=== PATIENT | male | born 1995 | race Caucasian/White ===

== ENCOUNTER 2017-02-16 19:14 | Emergency (ER) | payer OTHER ==
[~2017-02-16] VITALS: Ht 193 cm; Wt 96.4 kg
[2017-02-16 19:15] VITALS: BP 132/63
[2017-02-16] MEDS ORDERED: HUMALOG INSULIN PUMP INJ (19:22)
== END 2017-02-16 22:05 | disposition home or self-care (01) ==
LOC: M ED 19:14
DX: S09.90XA Unspecified injury of head, initial encounter (principal); W50.0XXA Accidental hit or strike by another person, initial encounter; Y92.310 Basketball court as the place of occurrence of the external cause; Y93.67 Activity, basketball; Y99.8 Other external cause status; E10.9 Type 1 diabetes mellitus without complications; Z79.4 Long term (current) use of insulin; Z88.2 Allergy status to sulfonamides

== ENCOUNTER 2017-04-22 20:58 | Emergency (ER) | payer OTHER ==
[~2017-04-22] VITALS: Ht 193 cm; Wt 100.0 kg
[~2017-04-22 20:58] MED LIST: HUMALOG INSULIN PUMP INJ
[2017-04-22] MEDS ORDERED: D5W/0.45% SODIUM CHLORIDE 1,000 ML IV SCH (21:21)
[2017-04-22 21:50] LABS: VENOUS BASE EXCESS -0.6 (-2.0-2.0); VENOUS O2 SATURATION 76.9 % (60.0-80.0); VENOUS PARTIAL PRESSURE CO2 49.6 mmHg (38.0-50.0); VENOUS PARTIAL PRESSURE O2 43.3 mmHg (30.0-50.0); VENOUS STANDARD HCO3 23.4 MEQ/L; VENOUS TOTAL CO2 27.4 MEQ/L (24.0-28.0)
[2017-04-22 21:59] LABS: BASO % 0.3 % (0.0-1.0); EOS # 0.1 10^3/uL (0.0-0.50); EOS % 1.2 % (0.0-3.0); IMMATURE GRANULOCYTE % 0.3 % (0-0); LYMPH # 1.2 10^3/uL (1.5-6.5); LYMPH % 13.6 % (24.0-44.0); MEAN CORPUSCULAR HEMOGLOBIN 32.3 pg (27.0-33.0); MEAN CORPUSCULAR HGB CONC 34.7 g/dl (32.0-36.5); MEAN CORPUSCULAR VOLUME 93.1 fl (80.0-96.0); MONO # 0.8 10^3/uL (0.0-0.8); MONO % 8.9 % (0.0-5.0); NEUTROPHILS # 6.5 10^3/uL (1.8-7.7); NEUTROPHILS % 75.7 % (36.0-66.0); PLATELET COUNT, AUTOMATED 248 10^3/uL (150-450); RED CELL DISTRIBUTION WIDTH 12.3 % (11.5-14.5); WHITE BLOOD COUNT 8.6 10^3/uL (4.0-10.0)
[2017-04-22 22:19] LABS: ALBUMIN 3.6 GM/DL (3.2-5.2); ALBUMIN/GLOBULIN RATIO 1.06 (1.00-1.93); ALKALINE PHOSPHATASE 136 U/L (45-117); ALT/SGPT 36 U/L (12-78); ANION GAP 6 MEQ/L (8-16); AST/SGOT 33 U/L (7-37); BILIRUBIN,DIRECT 0.1 MG/DL (0.0-0.2); BILIRUBIN,TOTAL 0.7 MG/DL (0.2-1.0); BLOOD UREA NITROGEN 21 MG/DL (7-18); CARBON DIOXIDE LEVEL 30 MEQ/L (21-32); CHLORIDE LEVEL 104 MEQ/L (98-107); CREATININE FOR GFR 1.29 MG/DL (0.70-1.30); GLUCOSE, FASTING 90 MG/DL (70-105); POTASSIUM SERUM 3.6 MEQ/L (3.5-5.1); SODIUM LEVEL 140 MEQ/L (136-145)
[2017-04-22 23:14] VITALS: BP 154/78
== END 2017-04-22 23:18 | disposition home or self-care (01) ==
LOC: EDBD 20:58 → M ED 20:58
DX: E10.649 Type 1 diabetes mellitus with hypoglycemia without coma (principal)

== ENCOUNTER 2018-03-26 04:54 | Emergency (ER) | payer OTHER ==
[2018-03-26] MEDS: NS 1,000 ML IV ×2 (06:15)
[2018-03-26 06:31] LABS: VENOUS BASE EXCESS -0.1 (-2.0-2.0); VENOUS O2 SATURATION 75.7 % (60.0-80.0); VENOUS PARTIAL PRESSURE CO2 42.2 mmHg (38.0-50.0); VENOUS PARTIAL PRESSURE O2 41.1 mmHg (30.0-50.0); VENOUS STANDARD HCO3 23.9 MEQ/L; VENOUS TOTAL CO2 26.3 MEQ/L (24.0-28.0)
[2018-03-26 06:42] LABS: ANION GAP 8 MEQ/L (8-16); BLOOD UREA NITROGEN 14 MG/DL (7-18); CALCIUM LEVEL 8.6 MG/DL (8.5-10.1); CARBON DIOXIDE LEVEL 26 MEQ/L (21-32); CHLORIDE LEVEL 105 MEQ/L (98-107); CREATININE FOR GFR 1.34 MG/DL (0.70-1.30); GLUCOSE, FASTING 190 MG/DL (70-100); POTASSIUM SERUM 3.8 MEQ/L (3.5-5.1); SODIUM LEVEL 139 MEQ/L (136-145)
[2018-03-26] MEDS: ONDANSETRON 4MG/2ML VIAL (J2405) IV (06:43)
[2018-03-26 07:03] LABS: INFLUENZA A AMPLIFICATION NEGATIVE (NEGATIVE); INFLUENZA B AMPLIFICATION NEGATIVE (NEGATIVE)
[2018-03-26] MEDS: IBUPROFEN 800 MG TAB PO (07:31)
[2018-03-30 09:27] LABS: BEDSIDE GLUCOSE 303 MG/DL (70-105)
== END 2018-03-26 07:55 | disposition home or self-care (01) ==
LOC: M ED 04:54
DX: E10.65 Type 1 diabetes mellitus with hyperglycemia (principal); B34.9 Viral infection, unspecified; Z88.2 Allergy status to sulfonamides
CPT/HCPCS: J2405

== ENCOUNTER 2018-05-17 00:52 | Emergency (ER) | payer OTHER | END 2018-05-17 01:36 | disposition home or self-care (01) | LOC: M ED 00:52 | DX: S09.90XA Unspecified injury of head, initial encounter (principal); V00.211A Fall from ice-skates, initial encounter; Y92.330 Ice skating rink (indoor) (outdoor) as the place of occurrence of the external cause; E11.9 Type 2 diabetes mellitus without complications; J45.909 Unspecified asthma, uncomplicated; Z79.4 Long term (current) use of insulin | CPT/HCPCS: 99282 ==

== ENCOUNTER 2018-06-30 13:15 | Emergency (ER) | payer OTHER ==
[~2018-06-30] VITALS: Ht 193 cm; Wt 104.5 kg
[~2018-06-30 13:15] MED LIST changes: +INSUHUMDS
[2018-06-30] MEDS ORDERED: LIDOCAINE 1% MDV 20ML VIAL SC ONE (13:45)
[2018-06-30] MEDS ORDERED: NEOSPORIN OINT 0.9 GM PKT (FLOOR STOCK) As Ordered ONE (14:29)
[2018-06-30 14:31] VITALS: BP 133/69
== END 2018-06-30 14:33 | disposition home or self-care (01) ==
LOC: M ED 13:15
DX: S61.216A Laceration without foreign body of right little finger without damage to nail, initial encounter (principal); W25.XXXA Contact with sharp glass, initial encounter; Y92.019 Unspecified place in single-family (private) house as the place of occurrence of the external cause

== ENCOUNTER 2018-09-27 07:46 | Emergency (ER) | payer OTHER ==
[~2018-09-27] VITALS: Ht 193 cm; Wt 102.3 kg
[2018-09-27] MEDS ORDERED: ACET-861 PO (07:51)
[2018-09-27] MEDS ORDERED: KETOROLAC 30 MG/ML VIAL (J1885) IV ONE (09:00)
[2018-09-27 09:20] LABS: BASO % 0.7 % (0.0-1.0); EOS # 0.2 10^3/uL (0.0-0.50); EOS % 3.6 % (0.0-3.0); HEMATOCRIT 46.7 % (42.0-52.0); HEMOGLOBIN 16.6 g/dl (13.5-17.5); LYMPH # 1.6 10^3/uL (1.5-6.5); LYMPH % 27.6 % (24.0-44.0); MEAN CORPUSCULAR HEMOGLOBIN 31.3 pg (27.0-33.0); MEAN CORPUSCULAR HGB CONC 35.5 g/dl (32.0-36.5); MEAN CORPUSCULAR VOLUME 87.9 fl (80.0-96.0); MONO # 0.5 10^3/uL (0.0-0.8); MONO % 8.6 % (0.0-5.0); NEUTROPHILS # 3.5 10^3/uL (1.8-7.7); NEUTROPHILS % 59.2 % (36.0-66.0); PLATELET COUNT, AUTOMATED 268 10^3/uL (150-450); RED BLOOD COUNT 5.31 10^6/uL (4.30-6.10); WHITE BLOOD COUNT 5.9 10^3/uL (4.0-10.0)
[2018-09-27 09:46] LABS: BLOOD UREA NITROGEN 18 MG/DL (7-18); C REACTIVE PROTEIN QUANTITATIV < 0.30 MG/DL (0.00-0.30); CALCIUM LEVEL 9.1 MG/DL (8.5-10.1); CARBON DIOXIDE LEVEL 25 MEQ/L (21-32); CHLORIDE LEVEL 98 MEQ/L (98-107); CREATININE FOR GFR 1.26 MG/DL (0.70-1.30); GLOMERULAR FILTRATION RATE > 60.0 (>60); GLUCOSE, FASTING 467 MG/DL (70-100); POTASSIUM SERUM 5.7 MEQ/L (3.5-5.1); SODIUM LEVEL 129 MEQ/L (136-145)
[2018-09-27 09:57] LABS: ERYTHROCYTE SEDIMENTATION RATE 4 mm/hr (0-15)
--- NOTE | 2018-09-27 10:01 | REP ---
Mandible series five views: No definite lytic, blastic or destructive skeletal changes are identified. However, on the lateral oblique view of the right mandible. There is questionably a fracture of the mandibular ramus. I would recommend follow-up CT of the mandible for further evaluation. Electronically Signed by Yuan Brown MD 09/27/2018 09:53 A
--- NOTE | 2018-09-27 10:44 | REP ---
Maxillofacial CT without IV contrast: Study is correlated with the plain film study performed earlier today. There is no fracture of the right or the left mandibular ramus. The finding on plain films likely artifact. The right and left third molars have been removed. There is a surgical clip in the socket of the right third molar and there is a bone loss in this socket, however, there are no lytic, blastic or destructive skeletal changes to suggest osteomyelitis. The socket of the left third molar is unremarkable. The temporomandibular joints are unremarkable bilaterally. The nasal bones are unremarkable. The orbits are unremarkable. The zygomatic arches are unremarkable. The paranasal sinuses are unremarkable. Mastoid air cells are unremarkable. The skull base and sella turcica are unremarkable. Impression: Both right and left third molars have been extracted. The socket of the right third molar demonstrates bone loss and there is a surgical clip in this socket, however, there are no lytic, blastic or destructive changes to suggest osteomyelitis. The left third molar socket is unremarkable. There is no mandibular fracture. Electronically Signed by Yuan Brown MD 09/27/2018 10:36 A
[2018-09-27] MEDS ORDERED: NS 1,000 ML IV ONE (10:45)
[2018-09-27] MEDS ORDERED: IBUP80TA PO (10:59)
[2018-09-27] MEDS ORDERED: PERC5TAB12 PO (11:00)
[2018-09-27 12:42] LABS: BLOOD UREA NITROGEN 17 MG/DL (7-18); CALCIUM LEVEL 8.8 MG/DL (8.5-10.1); CARBON DIOXIDE LEVEL 26 MEQ/L (21-32); CHLORIDE LEVEL 106 MEQ/L (98-107); CREATININE FOR GFR 1.15 MG/DL (0.70-1.30); GLOMERULAR FILTRATION RATE > 60.0 (>60); GLUCOSE, FASTING 159 MG/DL (70-100); POTASSIUM SERUM 3.9 MEQ/L (3.5-5.1); SODIUM LEVEL 138 MEQ/L (136-145)
[2018-09-27 12:54] VITALS: BP 128/76
== END 2018-09-27 12:57 | disposition home or self-care (01) ==
LOC: M ED 07:46
DX: R68.84 Jaw pain (principal); E11.9 Type 2 diabetes mellitus without complications; Z79.4 Long term (current) use of insulin; Z88.2 Allergy status to sulfonamides; Z88.8 Allergy status to other drugs, medicaments and biological substances
CPT/HCPCS: 70110; 70486; 80048; 85025; 85652; 86140; 96361; 96374; 99284; J1885